=== PATIENT | male | born 1980 | race Caucasian/White ===

== ENCOUNTER 2017-12-04 16:24 | Emergency (ER) | payer OTHER ==
[2017-12-04] MEDS ORDERED: Ketorolac Tromethamine 30 MG/ML VIAL ONE (16:43)
--- NOTE | 2017-12-04 18:48 | RAD ---
RIGHT HIP 2 VIEWS: Date: 12/04/17 HISTORY: Fall with injury to right hip. FINDINGS: No evidence of acute fracture identified. No other osseous abnormality noted. IMPRESSION: No acute finding. POS: SACHA
== END 2017-12-04 17:47 | disposition home or self-care (01) ==
LOC: ERS 16:24
DX: S70.01XA Contusion of right hip, initial encounter (principal); I10 Essential (primary) hypertension; Z79.899 Other long term (current) drug therapy; W17.89XA Other fall from one level to another, initial encounter
CPT/HCPCS: 96372; J1885

== ENCOUNTER 2018-02-26 08:32 | Emergency (ER) | payer OTHER ==
[2018-02-26] MEDS ORDERED: Dexamethasone 10 MG/ML VIAL ONE (09:33)
[2018-02-26] MEDS ORDERED: Ketorolac Tromethamine 60 MG/2 ML VIAL ONE (09:33)
== END 2018-02-26 10:03 | disposition home or self-care (01) ==
LOC: ERS 08:32
DX: S39.012A Strain of muscle, fascia and tendon of lower back, initial encounter (principal); I10 Essential (primary) hypertension; Z79.899 Other long term (current) drug therapy; X50.9XXA Other and unspecified overexertion or strenuous movements or postures, initial encounter
CPT/HCPCS: 96372; J1100; J1885

== ENCOUNTER 2018-08-06 09:08 | Emergency (ER) | payer OTHER ==
[2018-08-06] MEDS ORDERED: Ketorolac Tromethamine 30 MG/ML VIAL ONE (09:53)
[2018-08-06] MEDS ORDERED: Adacel (T-DAP) 0.5 ML SYRINGE ONE (09:53)
== END 2018-08-06 10:12 | disposition home or self-care (01) ==
LOC: ERS 09:08
DX: L25.9 Unspecified contact dermatitis, unspecified cause (principal); I10 Essential (primary) hypertension; E78.00 Pure hypercholesterolemia, unspecified; F31.9 Bipolar disorder, unspecified
CPT/HCPCS: 90471; 90715; 96372; J1885

== ENCOUNTER 2019-06-23 13:53 | Emergency (ER) | payer OTHER ==
--- NOTE | 2019-06-23 15:15 | RAD ---
XR Hand Rt 3 View STANDARD: 06/23/2019 2:19 PM CLINICAL INDICATION: Right hand injury while moving furniture COMPARISON: None. FINDINGS: Bones: The digits are held in flexion slightly limiting the exam. No acute fracture or subluxation i s evident. Joints: Joint spaces are preserved. Soft Tissue: Soft tissues are normal appearing. IMPRESSION: No acute osseous abnormality..
[2019-06-23] MEDS ORDERED: Ketorolac Tromethamine 30 MG/ML VIAL ONE (15:56)
[2019-06-23] MEDS ORDERED: Acetaminophen 500 MG TAB ONE (15:56)
== END 2019-06-23 16:20 | disposition home or self-care (01) ==
LOC: ERS 13:53
DX: S60.221A Contusion of right hand, initial encounter (principal); E78.5 Hyperlipidemia, unspecified; I10 Essential (primary) hypertension; F17.210 Nicotine dependence, cigarettes, uncomplicated; F31.9 Bipolar disorder, unspecified; Z79.899 Other long term (current) drug therapy; X58.XXXA Exposure to other specified factors, initial encounter
CPT/HCPCS: 96372; J1885

== ENCOUNTER 2020-01-30 18:58 | Emergency (ER) | payer OTHER, SELFPAY ==
--- NOTE | 2020-01-30 19:30 | RAD ---
THREE VIEWS OF THE RIGHT HAND: 01/30/20 COMPARISON: None. HISTORY: Fell on a sliding glass door last night with laceration of the hand. COMPARISON: 06/23/19 FINDINGS: Three views of the right hand shows a radiopaque foreign body along the ulnar aspect of the hand casey cent to the metacarpal of the small finger. This likely represents a retained piece of glass. There i s no evidence of fracture or dislocation. Soft tissue swelling is seen along the ulnar aspect of the hand. IMPRESSION: 1. No evidence of acute osseous abnormality. 2. Retained foreign body in the soft tissues of the hand likely represents glass. POS: JAZMIN
[2020-01-30] MEDS ORDERED: Boostrix 0.5 ML (Tdap) VIAL ONE (20:12)
[2020-01-30] MEDS ORDERED: Lidocaine 1% PF 5 ML VIAL ONE ×2 (20:12→20:14)
--- NOTE | 2020-01-30 22:32 | RAD ---
THREE VIEWS OF THE RIGHT HAND: 01/30/20 COMPARISON: 01/30/20 at 7:13 p.m. HISTORY: Glass in the right hand status post removal. FINDINGS: Three views of the right hand shows removal of some of the radiopaque objects from the ulnar aspect o f the hand adjacent to the small finger metacarpal. There is still one retained fragment. No fracture or dislocation are seen. IMPRESSION: Persistent retained fragment along the ulnar aspect of the hand. POS: EAA
--- NOTE | 2020-01-31 06:50 | RAD ---
3 VIEWS RIGHT HAND: Date: 01/30/2020 COMPARISON: None. HISTORY: Removal of foreign body. COMPARISON: 01/30/2020 at 2141 hours. FINDINGS: Three views of the right hand shows removal of the residual radiopaque foreign body along the ulnar a spect of the hand. No retained foreign bodies are seen on this radiograph. IMPRESSION: Removal of foreign body from the hand. POS: EAA
== END 2020-01-30 22:56 | disposition home or self-care (01) ==
LOC: ERS 18:58
DX: S61.421A Laceration with foreign body of right hand, initial encounter (principal); E78.5 Hyperlipidemia, unspecified; E78.00 Pure hypercholesterolemia, unspecified; I10 Essential (primary) hypertension; F17.210 Nicotine dependence, cigarettes, uncomplicated; Z79.899 Other long term (current) drug therapy; W01.110A Fall on same level from slipping, tripping and stumbling with subsequent striking against sharp glass, initial encounter
CPT/HCPCS: 10120; 90471; 90715

== ENCOUNTER 2020-11-08 20:41 | Emergency (ER) | payer OTHER, SELFPAY | END 2020-11-08 22:44 | disposition home or self-care (01) | LOC: ERS 20:41 | DX: S06.0X9A Concussion with loss of consciousness of unspecified duration, initial encounter (principal); E78.5 Hyperlipidemia, unspecified; E78.00 Pure hypercholesterolemia, unspecified; I10 Essential (primary) hypertension; F17.210 Nicotine dependence, cigarettes, uncomplicated; W22.8XXA Striking against or struck by other objects, initial encounter | CPT/HCPCS: 70450; 72072; 72125 ==

== ENCOUNTER 2022-03-13 22:12 | Emergency (ER) | payer OTHER, SELFPAY ==
[2022-03-14] MEDS ORDERED: Ketorolac Tromethamine 30 MG/ML VIAL ONE (00:13)
[2022-03-14] MEDS ORDERED: Cyclobenzaprine 10 MG TAB ONE (00:13)
== END 2022-03-14 00:41 | disposition home or self-care (01) ==
LOC: ERS 22:12
DX: S20.211A Contusion of right front wall of thorax, initial encounter (principal); W27.8XXA Contact with other nonpowered hand tool, initial encounter
CPT/HCPCS: 71045; 96372; J1885

== ENCOUNTER 2022-04-22 08:45 | Emergency (ER) | payer SELFPAY ==
[2022-04-22 09:43] LABS: #Basophils 0.1 thou/uL (0.0-0.2); #Eosinphils 0.2 thou/uL (0.0-0.7); #Lymphocytes 2.7 thou/uL (1.20-3.40); #Monocytes 0.6 thou/uL (0.11-0.59); %Basophils 0.7 % (0.0-1.0); %Eosinophils 1.8 % (0.0-10.0); %Lymphocytes 25.8 % (21.0-51.0); %Monocytes 5.6 % (0.0-10.0); %Neutrophils 66.1 % (42.0-75.0); Hemoglobin 17.5 g/dL (14.0-18.0); Mean Corpuscular HGB CONC 34.3 g/dL (32.0-36.0); Mean Corpuscular Hemoglobin 31.6 pg (27.0-31.0); Mean Corpuscular Volume 92.2 fl (78.0-98.0); Mean Platelet Volume 8.8 fL (7.4-10.4); Platelet Count 157 10x3/uL (130-400); RBC Distribution Width 12.2 % (11.5-14.5); Red Blood Cell (RBC) Count 5.52 mill/uL (4.70-6.10); White Blood Cell (WBC) Count 10.5 10x3/uL (4.8-10.8)
[2022-04-22 10:00] LABS: Amphetamine Not Detected (NotDetected); Barbiturates Screen Not Detected (NotDetected); Benzodiazepine Screen Not Detected (NotDetected); Cocaine Metabolite Screen Not Detected (NotDetected); Methadone Not Detected (NotDetected); Methamphetamine Not Detected (NotDetected); Opiate Screen Not Detected (NotDetected); Oxycodone Screen Not Detected (NotDetected); Phencyclidine (PCP) Not Detected (NotDetected); THC/Cannabinoid Screen Not Detected (NotDetected); Tricyclic Screen Not Detected (NotDetected)
[2022-04-22 10:05] LABS: ALT (SGPT) 30 U/L (8-55); AST (SGOT) 16 U/L (5-34); Acetaminophen Less than 10.0 mcg/mL (10.0-30.0); Albumin 4.5 g/dL (3.5-5.0); Alcohol Less than 10 mg/dL (Less than 10); Alkaline Phosphatase 69 U/L (40-110); Anion Gap 11 mmol/L (10-20); BUN (Urea Nitrogen) 8 mg/dL (8.9-20.6); Bilirubin, Total 0.9 mg/dL (0.2-1.2); Calc. Creatinine Clearance 0 mL/min (70-130); Calcium 9.8 mg/dL (7.8-10.44); Carbon Dioxide 26 mmol/L (22-29); Chloride 100 mmol/L (98-107); Estimated GFR 113; Globulin 3.1 g/dL (2.4-3.5); Glucose 388 mg/dL (70-105); Potassium 4.3 mmol/L (3.5-5.1); Protein, Total 7.6 g/dL (6.0-8.3); Salicylate Less than 8.0 mg/dL (15.0-30.0); Sodium 133 mmol/L (136-145)
== END 2022-04-22 11:20 | disposition home or self-care (01) ==
LOC: ERS 08:45
DX: F43.0 Acute stress reaction (principal); E11.65 Type 2 diabetes mellitus with hyperglycemia; I10 Essential (primary) hypertension; E78.5 Hyperlipidemia, unspecified; F17.210 Nicotine dependence, cigarettes, uncomplicated; Z79.899 Other long term (current) drug therapy; Z79.84 Long term (current) use of oral hypoglycemic drugs
CPT/HCPCS: 36415; 80053; 80306; 80307; 84443; 85025; 93005

== ENCOUNTER 2022-07-07 21:55 | Emergency (ER) | payer OTHER ==
[2022-07-07 22:53] LABS: Actual Bicarbonate (HCO3v) 26.4 mEq/L (22-28); Base Excess 2.9 mEq/L (-2.0 to +3.0); Calcium, Ionized (venous) 1.15 mmol/L (1.16-1.32); Chloride (VBG) 98 mmol/L (98-106); Hematocrit-VBG 53 % (42.0-52.0); Hemoglobin (Hb) 18.1 g/dL (13.2-17.3); Potassium (VBG) 4.38 mmol/L (3.70-5.30); Sodium 135.9 mmol/L (133-146); pH (venous) 7.469 (7.32-7.43)
[2022-07-07 23:03] LABS: #Basophils 0.1 thou/uL (0.0-0.2); #Eosinphils 0.2 thou/uL (0.0-0.7); #Monocytes 0.8 thou/uL (0.11-0.59); %Eosinophils 1.6 % (0.0-10.0); %Lymphocytes 32.9 % (21.0-51.0); %Monocytes 6.5 % (0.0-10.0); %Neutrophils 57.5 % (42.0-75.0); Mean Corpuscular HGB CONC 33.9 g/dL (32.0-36.0); Mean Corpuscular Hemoglobin 29.7 pg (27.0-31.0); Mean Corpuscular Volume 87.6 fl (78.0-98.0); Mean Platelet Volume 11.1 fL (7.4-10.4); Platelet Count 178 10x3/uL (130-400); RBC Distribution Width 12.9 % (11.5-14.5); Red Blood Cell (RBC) Count 5.73 mill/uL (4.70-6.10); White Blood Cell (WBC) Count 12.2 10x3/uL (4.8-10.8)
[2022-07-07 23:20] LABS: Bilirubin Negative (Negative); Blood, Urine Negative (Negative); Clarity Clear (Clear); Glucose, Urine (Dipstick) Greater than 1000 mg/dL (Negative); Ketone, Urine Trace mg/dL (Negative); Leukocyte Negative Leu/uL (Negative); Nitrite Negative (Negative); Protein, Urine (Dipstick) 10 mg/dL (Neg-Trace); Urobilinogen Normal mg/dL (Less than 2); pH, Urine 6.5 (5.0-9.0)
[2022-07-07 23:28] LABS: ALT (SGPT) 33 U/L (8-55); AST (SGOT) 17 U/L (5-34); Albumin 4.5 g/dL (3.5-5.0); Alkaline Phosphatase 64 U/L (40-110); Anion Gap 17 mmol/L (10-20); BUN (Urea Nitrogen) 12 mg/dL (8.9-20.6); Bilirubin, Total 0.4 mg/dL (0.2-1.2); Calc. Creatinine Clearance 0 mL/min (70-130); Calcium 10.5 mg/dL (7.8-10.44); Carbon Dioxide 25 mmol/L (22-29); Chloride 98 mmol/L (98-107); Estimated GFR 81; Globulin 3.5 g/dL (2.4-3.5); Glucose 390 mg/dL (70-105); Magnesium 1.9 mg/dL (1.6-2.6); Potassium 4.5 mmol/L (3.5-5.1); Sodium 135 mmol/L (136-145)
[2022-07-07 23:45] LABS: Platelet Morphology Comment Platelets Normal; RBC Morphology Within Normal Limits
== END 2022-07-08 02:40 | disposition home or self-care (01) ==
LOC: ERS 21:55
DX: E11.65 Type 2 diabetes mellitus with hyperglycemia (principal); D72.829 Elevated white blood cell count, unspecified; I10 Essential (primary) hypertension; E78.5 Hyperlipidemia, unspecified; F17.210 Nicotine dependence, cigarettes, uncomplicated; Z79.84 Long term (current) use of oral hypoglycemic drugs
CPT/HCPCS: 36415; 36416; 80053; 81003; 82010; 82805; 83735; 85025; 93005; 94760

== ENCOUNTER 2022-10-07 10:54 | Emergency (ER) | payer OTHER, SELFPAY ==
[2022-10-07 12:32] LABS: SARS-CoV-2 NAA Rapid Test DETECTED (NotDetected)
== END 2022-10-07 12:40 | disposition home or self-care (01) ==
LOC: ERS 10:54
DX: U07.1 COVID-19 (principal); F17.210 Nicotine dependence, cigarettes, uncomplicated; I10 Essential (primary) hypertension; E11.9 Type 2 diabetes mellitus without complications; Z79.84 Long term (current) use of oral hypoglycemic drugs; E78.5 Hyperlipidemia, unspecified; Z79.899 Other long term (current) drug therapy
CPT/HCPCS: 99283

== ENCOUNTER 2022-10-10 22:06 | Emergency (ER) | payer SELFPAY | END 2022-10-10 23:22 | disposition home or self-care (01) | LOC: ERS 22:06 | DX: U07.1 COVID-19 (principal); E11.9 Type 2 diabetes mellitus without complications; I10 Essential (primary) hypertension; E78.5 Hyperlipidemia, unspecified; Z79.899 Other long term (current) drug therapy; Z79.84 Long term (current) use of oral hypoglycemic drugs | CPT/HCPCS: 99283 ==

== ENCOUNTER 2022-12-23 20:39 | Emergency (ER) | payer BC, SELFPAY ==
[2022-12-23 21:23] LABS: #Basophils 0.1 thou/uL (0.0-0.2); #Eosinphils 0.2 thou/uL (0.0-0.7); #Monocytes 0.7 thou/uL (0.11-0.59); #Neutrophils 6.2 thou/uL (1.40-6.50); %Basophils 0.9 % (0.0-1.0); %Eosinophils 1.9 % (0.0-10.0); %Lymphocytes 32.3 % (21.0-51.0); %Monocytes 6.3 % (0.0-10.0); %Neutrophils 58.3 % (42.0-75.0); Hematocrit 46.8 % (42.0-52.0); Hemoglobin 16.3 g/dL (14.0-18.0); Mean Corpuscular HGB CONC 34.8 g/dL (32.0-36.0); Mean Corpuscular Hemoglobin 30.8 pg (27.0-31.0); Mean Corpuscular Volume 88.3 fl (78.0-98.0); Mean Platelet Volume 10.9 fL (7.4-10.4); Platelet Count 193 10x3/uL (130-400); RBC Distribution Width 12.8 % (11.5-14.5); White Blood Cell (WBC) Count 10.7 10x3/uL (4.8-10.8)
[2022-12-23 21:45] LABS: Phosphorus 4.1 mg/dL (2.3-4.7)
[2022-12-23 21:49] LABS: ALT (SGPT) 21 U/L (8-55); AST (SGOT) 13 U/L (5-34); Albumin 4.9 g/dL (3.5-5.0); Alkaline Phosphatase 58 U/L (40-110); Anion Gap 15 mmol/L (10-20); BUN (Urea Nitrogen) 12 mg/dL (8.9-20.6); Bilirubin, Total 0.4 mg/dL (0.2-1.2); Calc. Creatinine Clearance 0 mL/min (70-130); Calcium 10.1 mg/dL (7.8-10.44); Carbon Dioxide 23 mmol/L (22-29); Chloride 102 mmol/L (98-107); Estimated GFR 111; Globulin 2.7 g/dL (2.4-3.5); Glucose 308 mg/dL (70-105); Magnesium 1.9 mg/dL (1.6-2.6); Potassium 3.8 mmol/L (3.5-5.1); Protein, Total 7.6 g/dL (6.0-8.3); Sodium 136 mmol/L (136-145)
== END 2022-12-23 23:15 | disposition home or self-care (01) ==
LOC: ERS 20:39
DX: E11.65 Type 2 diabetes mellitus with hyperglycemia (principal); E78.00 Pure hypercholesterolemia, unspecified; I10 Essential (primary) hypertension; F17.210 Nicotine dependence, cigarettes, uncomplicated; Z79.899 Other long term (current) drug therapy; Z79.84 Long term (current) use of oral hypoglycemic drugs
CPT/HCPCS: 36415; 36416; 80053; 82010; 83735; 84100; 85025; 99284